=== PATIENT | male | born 1980 | race Hispanic/Latino ===

== ENCOUNTER 2019-02-10 11:58 | Emergency (ER) | payer SELFPAY ==
[2019-02-10] MEDS ORDERED: Naproxen 500 MG TAB ONE (12:24)
[2019-02-10] MEDS ORDERED: Lidocaine 1% (PF) 30 ML VIAL ONE (12:24)
[2019-02-10] MEDS ORDERED: Sulfameth/Trimethoprim DS 800-160mg TAB ONE (12:24)
== END 2019-02-10 12:57 | disposition home or self-care (01) ==
LOC: NAV ERS 11:58
DX: L02.212 Cutaneous abscess of back [any part, except buttock and flank] (principal); Z87.891 Personal history of nicotine dependence
CPT/HCPCS: 10060; 87070; 87077; 87205; J2001